=== PATIENT | male | born 1965 | race Caucasian/White ===

== ENCOUNTER 2020-10-14 07:48 | Emergency (ER) | payer MEDICAID, OTHER ==
[~2020-10-14] VITALS: Ht 180.3 cm; Wt 78.0 kg
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
[2020-10-14] MEDS ORDERED: ONDANSETRON 2MG/ML, 2ML ONE (08:18)
[2020-10-14] MEDS ORDERED: MORPHINE SULFATE 4 MG/ML, 1ML ONE (08:18)
[2020-10-14] MEDS ORDERED: ONDANSETRON 2MG/ML, 2ML IVPush ONE (08:30)
[2020-10-14] MEDS ORDERED: SODIUM CHLORIDE FLUSH 10ML SYR IVF ONE (08:30)
[2020-10-14] MEDS ORDERED: MORPHINE SULFATE 4 MG/ML, 1ML IVPush PRN (08:30)
--- NOTE | 2020-10-14 08:31 | NUR ---
PIV inserted and pt medicated per OCT. Pt to CT at this time accompanied by deputies.
--- NOTE | 2020-10-14 08:42 | NUR ---
Pt returned from CT w/ 2 officers at bedside. Pt void in urnal at bedside, no other requests at this time.
--- NOTE | 2020-10-14 09:58 | NUR ---
Pt provided water per request.
--- NOTE | 2020-10-14 10:08 | NUR ---
Pt resting in bed, denies needs. Pt reports pain improved after medications given, now 12/07. POC discussed with pt.
--- NOTE | 2020-10-14 10:53 | NUR ---
Maxillofacial surgeon at bedside to see pt
--- NOTE | 2020-10-14 11:22 | NUR ---
Patient/Caregiver given discharge instructions and they have confirmed that they understand the instructions. Patient ambulatory with steady gait.
[2020-10-14 11:23] VITALS: BP 145/82
== END 2020-10-14 11:23 | disposition home or self-care (01) ==
LOC: ED 08:42
DX: S02.2XXA Fracture of nasal bones, initial encounter for closed fracture (principal); R51.9 Headache, unspecified; R55 Syncope and collapse; G20 Parkinson's disease; Y00.XXXA Assault by blunt object, initial encounter; Y93.89 Activity, other specified; Y92.89 Other specified places as the place of occurrence of the external cause; Y99.8 Other external cause status
CPT/HCPCS: 70450; 70486; 96374; 96375; 99285; J2270; J2405